=== PATIENT | male | born 1950 | race Caucasian/White ===

== ENCOUNTER 2017-09-03 19:54 | Emergency (ER) | payer BC, MEDICARE | END 2017-09-03 20:23 | disposition home or self-care (01) | LOC: ERS 19:54 | DX: G50.0 Trigeminal neuralgia (principal); M19.90 Unspecified osteoarthritis, unspecified site; E11.9 Type 2 diabetes mellitus without complications; I10 Essential (primary) hypertension; Z85.46 Personal history of malignant neoplasm of prostate; Z79.899 Other long term (current) drug therapy | CPT/HCPCS: 99283 ==

== ENCOUNTER 2017-09-22 10:09 | Outpatient (CLI) | payer BC, MEDICARE ==
[2017-09-22] MEDS ORDERED: Gadobenate Dimeglumine 529 MG/1 ML (20ML VIAL) ONE (16:43)
== END 2017-09-22 10:10 | disposition home or self-care (01) ==
LOC: BICMRI 10:09
PROVIDERS: ATTEND Psychiatry & Neurology Neurology
DX: G50.0 Trigeminal neuralgia (principal); G93.89 Other specified disorders of brain
CPT/HCPCS: 70553; A9579

== ENCOUNTER 2017-10-02 13:08 | Outpatient (CLI) | payer BC, MEDICARE | END 2017-10-02 13:09 | disposition home or self-care (01) | LOC: BICCT 13:08 | PROVIDERS: ATTEND Psychiatry & Neurology Neurology | DX: R93.8 Abnormal findings on diagnostic imaging of other specified body structures (principal); G93.89 Other specified disorders of brain | CPT/HCPCS: 70450 ==

== ENCOUNTER 2018-12-06 00:16 | Outpatient (CLI) | payer BC, MEDICARE ==
[2018-12-06 14:21] LABS: Bilirubin Negative (Negative); Blood, Urine Negative (Negative); Clarity CLEAR (Clear); Glucose, Urine (Dipstick) Negative (Negative); Leukocyte Negative (Negative); Nitrite Negative (Negative); Protein, Urine (Dipstick) Negative (Neg-Trace); Specific Gravity, Urine 1.009 (1.002-1.036)
[2018-12-06 14:24] LABS: Bacteria/HPF None Seen HPF (None Seen); Hyaline Casts/LPF 0-3 HYALINE CAST LPF (0-3 Hyaline); RBC/HPF 0-3 HPF (0-3); Squamous Epithelial None Seen HPF (0-3); WBC/HPF None Seen HPF (0-3)
== END 2018-12-06 00:17 | disposition home or self-care (01) ==
LOC: LABBT 00:16
PROVIDERS: ATTEND Orthopaedic Surgery
DX: Z01.812 Encounter for preprocedural laboratory examination (principal); M17.12 Unilateral primary osteoarthritis, left knee
CPT/HCPCS: 81001; 87081

== ENCOUNTER 2018-12-06 13:00 | Inpatient (IN) | payer BC, MEDICARE ==
--- NOTE | 2018-12-13 09:11 | HP ---
ANTICIPATED DATE OF SURGERY: 12/17/2018. HISTORY OF PRESENT ILLNESS: The patient is a 68-year-old male with a several year history of progressive problems with the left knee without injury. His symptoms become much worse over the past several months. He describes pain with ambulation and change in position. He has had progressive symptoms despite rest, restriction of activities, anti-inflammatory medications, cortisone injections and Synvisc injections. The pain is now interfering with day-to-day activities including walking, getting dressed, and sleeping. PAST MEDICAL HISTORY: The patient has history of hypertension, hyperlipidemia, irritable bowel syndrome, gout, prostate cancer, and kidney stones. CURRENT MEDICATIONS: Include rosuvastatin, losartan, chlorthalidone, Celebrex, allopurinol, Tylenol, and Metamucil. ALLERGIES: HE HAS NO KNOWN ALLERGIES. FAMILY HISTORY: Otherwise unremarkable. SOCIAL HISTORY: Otherwise unremarkable. REVIEW OF SYSTEMS: Otherwise unremarkable. PHYSICAL EXAMINATION: GENERAL: Shows a healthy heavyset male. HEENT: Unremarkable. NECK: Supple. CHEST: Clear. HEART: Regular rate and rhythm. ABDOMEN: Soft, nontender. RECTAL: Deferred. GENITAL: Deferred. EXTREMITIES: Pertinent findings related to left knee. There is moderate varus deformity. There is no definite effusion. There is tenderness and crepitus over the medial joint line. Range of motion is 5 to 115 degrees. There is no instability. NEUROVASCULAR: Intact. There is a left antalgic gait. Distal pulses are 1+. DIAGNOSTIC STUDIES: IMAGING STUDIES: X-rays of the left knee reveal [id number] collapse medially with progression from x-rays taken several years ago. IMPRESSION: 1. Progressive degenerative arthritis, left knee. 2. History of hypertension. 3. History of hyperlipidemia. 4. History of gout. PLAN: Left total knee replacement. The nature of the surgery, length of recovery, and potential complications such as infection, loss of motion, incomplete relief, delayed wound healing, neurovascular injury, thromboembolic phenomena, possible transfusion, and need for revision have been discussed in detail. Job ID: [id number]
[2018-12-17] MEDS ORDERED: Sodium Chloride 0.9% 100 ML ONE (06:23)
[2018-12-17] MEDS ORDERED: Tranexamic Acid 1,000 MG/10 ML VIAL ONE ×2 (06:23→09:09)
[2018-12-17] MEDS ORDERED: Midazolam HCl 2 mg/2 ml Vial ONE (06:26)
[2018-12-17] MEDS ORDERED: Fentanyl 100 MCG/2 ML VIAL ONE ×4 (06:26→10:52)
[2018-12-17] MEDS ORDERED: Lidocaine 1% (PF) 30 ML VIAL ONE (06:27)
[2018-12-17] MEDS ORDERED: Lidocaine 1% w/Epinephrine 1:100K 20 ML VIAL ONE (06:42)
[2018-12-17] MEDS ORDERED: Bupivacaine/Epinephrine 0.25% 30 ML VIAL ONE (06:42)
[2018-12-17] MEDS ORDERED: Fentanyl 250 MCG/5 ML VIAL ONE (07:14)
[2018-12-17] MEDS ORDERED: Ondansetron PF 4 MG/2 ML Vial IVP PRN ×2 (08:15→13:45)
[2018-12-17] MEDS ORDERED: Ropivacaine HCl/PF 250 ML in Premix Bag 1 BAG NERVE BLCK SCH (08:15)
[2018-12-17] MEDS ORDERED: HYDROcodone/Acetaminophen 10/325 mg Tablet PO PRN ×2 (08:15)
[2018-12-17] MEDS ORDERED: Promethazine HCl 25 MG/ML VIAL IM PRN (08:15)
[2018-12-17] MEDS ORDERED: traMADol HCl 50 MG TAB PO PRN ×3 (08:15→13:45)
[2018-12-17] MEDS ORDERED: Zolpidem Tartrate 5 MG TAB PO PRN ×2 (08:15→13:45)
[2018-12-17] MEDS ORDERED: Fentanyl 100 MCG/2 ML VIAL SLOW IVP PRN ×3 (08:18→13:45)
[2018-12-17] MEDS ORDERED: Tranexamic Acid 1,000 MG in Sodium Chloride 0.9% 100 ML IVPB SCH ×2 (09:15→13:45)
[2018-12-17] MEDS ORDERED: PHENYLEPHRINE-NS 100 MCG/ML 10 ML SYRINGE ONE (09:16)
--- NOTE | 2018-12-17 09:29 | RAD ---
Left knee 2 views INDICATION: Total knee postop film COMPARISON: None FINDINGS: There is a left total knee prosthesis that projects in the expected position. There is intr a-articular and periarticular soft tissue gas consistent with the patient's recent postoperative state. Surgical angela are seen within the medial soft tissues of the distal left thigh and proximal foreleg likely related to prior saphenous vein grafting. There are vascular calcification is within the posterior soft tissues. IMPRESSION: Postoperative left knee without radiographic evidence of complication.
[2018-12-17] MEDS ORDERED: Ketorolac Tromethamine 30 MG/ML VIAL ONE (10:05)
[2018-12-17] MEDS ORDERED: Ropivacaine 0.5% HCl/PF (150 MG/30 ML VIAL) ONE (12:04)
[2018-12-17] MEDS ORDERED: Ropivacaine 0.2% HCl/PF (40 MG/20 ML VIAL) ONE (12:04)
--- NOTE | 2018-12-17 12:04 | RAD ---
2 views left knee: 12/17/2018 COMPARISON: None HISTORY: Evaluate knee following arthroplasty FINDINGS: There is postoperative fluid and gas anterior to the left knee and in the left suprapatella r bursa, consistent with recent total knee arthroplasty. There is postoperative change involving the posterior aspect of the patella. No acute fracture or evidence of dislocation is noted. IMPRESSION: Findings consistent with recent left total knee arthroplasty.
[2018-12-17] MEDS ORDERED: Ondansetron PF 4 MG/2 ML Vial ONE (13:40)
[2018-12-17] MEDS ORDERED: PROPOFOL 200 MG/20 ML VIAL ONE (13:40)
[2018-12-17] MEDS ORDERED: Dexamethasone 20 MG/5 ML VIAL ONE (13:40)
[2018-12-17] MEDS ORDERED: Promethazine HCl 25 MG/ML VIAL SLOW IVP PRN (13:45)
[2018-12-17] MEDS ORDERED: AZILSARTAN MED PO SCH (13:45)
[2018-12-17] MEDS ORDERED: Acetaminophen 325 MG TAB PO PRN (13:45)
[2018-12-17] MEDS ORDERED: CHLORTHALIDONE PO SCH (13:45)
[2018-12-17] MEDS ORDERED: diphenhydrAMINE 25 MG CAP PO PRN (13:45)
[2018-12-17] MEDS ORDERED: Amlodipine 10 MG TAB PO SCH (14:45)
[2018-12-17] MEDS ORDERED: Aspirin 81 mg Enteric Coated Tablet PO SCH (14:45)
[2018-12-17] MEDS ORDERED: Allopurinol 300 MG TAB PO SCH (14:45)
[2018-12-17] MEDS ORDERED: Multivitamin W/ Minerals 1 TAB PO SCH (15:00)
[2018-12-17] MEDS ORDERED: Senokot S 8.6-50 MG TAB PO SCH (15:00)
[2018-12-17] MEDS ORDERED: Chlorthalidone 25 MG TAB PO SCH (15:00)
[2018-12-17] MEDS ORDERED: CeleCOXIB 100 MG CAP PO SCH (15:00)
[2018-12-17] MEDS ORDERED: Losartan 25 MG TAB PO SCH (15:00)
[2018-12-17] MEDS: CEFAZOLIN 2 GM in Premix Bag 1 BAG IVPB SCH ×2 (15:53→23:23)
[2018-12-17] MEDS: HYDROcodone/Acetaminophen 10/325 mg Tablet PO PRN ×2 (15:54→20:31)
[2018-12-17] MEDS ORDERED: Ketorolac Tromethamine 30 MG/ML VIAL IVP PRN (16:00)
--- NOTE | 2018-12-17 16:17 | PDOC.PN ---
- Subjective Encounter Start Date: 12/17/18 Encounter Start Time: 16:10 Subjective: Consult for gen med mgmt s/p L TKA. Hx of HTN, Gout, Prostate Ca, -: Renal lithiasis. States feeling good and minimal pain. No CP, SOB -: Reviewed all hx, labs, rads, EKG's. - Objective MAR Reviewed: Yes Vital Signs & Weight: Weight Weight 265 lb Additional Labs: Laboratory Tests 09/20/17 12/12/18 12/12/18 07:26 08:27 08:27 WBC 4.8 Hgb 14.1 Hct 44.1 Plt Count 172 Sodium 137 Potassium 3.7 Chloride 102 Carbon Dioxide 28 Anion Gap 11 BUN 17 Creatinine 1.27 Estimated GFR (MDRD) 56 Glucose 117 H Hemoglobin A1c 5.8 Calcium 9.7 EKG Reviewed by me: Yes (12/12/18 - NSR, no acute ST-T wave changes, nl axis) Phys Exam - Physical Examination Constitutional: NAD HEENT: PERRLA, sclera anicteric, oral pharynx no lesions Neck: no nodes, no JVD, supple, full ROM Respiratory: no wheezing, no rales, no rhonchi, clear to auscultation bilateral S1, S2 Cardiovascular: RRR, no significant murmur, no rub, gallop obese Gastrointestinal: soft, non-tender, no distention, positive bowel sounds L knee with surgical dressing, edema, nerve block in place Musculoskeletal: pulses present Neurological: moves all 4 limbs Psychiatric: A&O x 3 Skin: normal turgor, cap refill <2 seconds Dx/Plan (1) HTN (hypertension) Code(s): I10 - ESSENTIAL (PRIMARY) HYPERTENSION Status: Chronic Qualifiers: Hypertension type: essential hypertension Qualified Code(s): I10 - Essential (primary) hypertension Comment: Resume home BP regimen, PRN Hydralazine (2) CKD (chronic kidney disease), stage III Code(s): N18.3 - CHRONIC KIDNEY DISEASE, STAGE 3 (MODERATE) Status: Chronic Comment: Avoid nephrotoxic meds and limit contrast exposure (3) GERD (gastroesophageal reflux disease) Code(s): K21.9 - GASTRO-ESOPHAGEAL REFLUX DISEASE WITHOUT ESOPHAGITIS Status: Chronic Comment: Protonix 40mg daily (4) Osteoarthritis Code(s): M19.90 - UNSPECIFIED OSTEOARTHRITIS, UNSPECIFIED SITE Status: Chronic Comment: Pain control, PT for mobilization (5) Status post total knee replacement, left Code(s): Z96.652 - PRESENCE OF LEFT ARTIFICIAL KNEE JOINT Status: Acute Comment: s/p L TKA, pain control, ASA 81mg BID, Joint U protocol - Plan plan discussed w/ family, continue antibiotics, PT/OT, forensic social worker, incentive spirometry, out of bed/ambulate, DVT proph w/SCDs Stable currently -: Continue home BP regimen -: OOB with PT for mobilization -: Pain control as clinically indicated -: AM lab: CBC * Thank you for the consult, will continue to follow with primary service.
--- NOTE | 2018-12-17 16:18 | OP ---
DATE OF PROCEDURE: 12/17/2018 COMPUTER NETWORKING INSTRUCTOR ADJUNCT: Jacy Lopez PA-C. ANESTHESIA: General plus adductor canal and sciatic nerve blocks. PREOPERATIVE DIAGNOSIS: Degenerative arthritis, left knee. POSTOPERATIVE DIAGNOSIS: Degenerative arthritis, left knee. PROCEDURES PERFORMED: Left total knee replacement with computer-assisted navigation with cemented Ingalls triathlon components (#5 femoral component, #5 primary tibial base plate with 9 mm CS plastic insert, and A35 all plastic patellar component). DESCRIPTION OF PROCEDURE: After satisfactory anesthesia was induced in supine position, sequential compression device was placed on the nonoperative leg throughout the procedure. The left leg was then prepped and draped in routine sterile fashion. The leg was elevated and exsanguinated with an Esmarch bandage and the tourniquet inflated to 300 mmHg. A gently curved medial parapatellar incision was made, carried down through the subcutaneous tissues and bleeding points controlled with Bovie cautery. Medial parapatellar arthrotomy was performed. Patella dislocated laterally and portions of the fat pad were excised for exposure. There was marked tricompartmental degenerative arthritis of the knee, especially medially with large areas of exposed bone. Meniscal remnants and osteophytes were removed. Using the [employer] pinless navigation system and the appropriate guides, the distal femoral and proximal tibial articular surfaces were excised with an oscillating saw to accept the trial components. It was felt that #5 femoral component, #5 tibial base plate with 9 mm CS plastic insert gave appropriate size, fit, stability, and correction of the preoperative deformity. The patellar articular surface was excised to accept an all plastic A35 patellar component. There was good range of motion and good patellar tracking. The trial components were removed. The knee was copiously irrigated with pulsatile lavage, and the bony surfaces thoroughly cleaned and dried. The permanent components were then cemented in a single stage using one package of cement premixed with 1 g of tobramycin powder. Excess cement was removed. There was again good fit and stability of the components. The knee was copiously irrigated. The medial retinaculum and quadriceps mechanism were closed with interrupted #2 Vicryl and a running #2 Quill. Skin was infiltrated with 30 mL of 0.25% Marcaine with epinephrine. Subcutaneous tissues were closed with a running 0 Quill suture, and the skin closed with running subcuticular 3-0 Monoderm and SurgiSeal skin adhesive. A sterile bulky compressive dressing was applied. The tourniquet deflated after 71 minutes. The foot promptly pinked up, and sequential compression devices were applied to his operated leg. He was awakened, taken to recovery room in stable condition. There were no apparent intraoperative complications. Estimated blood loss was less than 100 mL. Job ID: [id number]
[2018-12-17] MEDS ORDERED: hydrALAZINE 20 MG/ML VIAL SLOW IVP PRN (16:25)
[2018-12-17 18:19] VITALS: BMI 38.0
[2018-12-17] MEDS: Ketorolac Tromethamine 30 MG/ML VIAL IVP SCH ×2 (19:25→22:00)
[2018-12-17] MEDS: Sodium Chloride 0.9% 1,000 ML IV SCH ×2 (19:30→19:31)
[2018-12-17] MEDS: Aspirin 81 mg Enteric Coated Tablet PO SCH (20:28)
[2018-12-17] MEDS: Rosuvastatin 20 MG TAB PO SCH (20:28)
[2018-12-17] MEDS: Senokot S 8.6-50 MG TAB PO SCH (20:30)
[2018-12-18] MEDS: Sodium Chloride 0.9% 1,000 ML IV SCH ×3 (03:31→20:58)
[2018-12-18] MEDS: Ketorolac Tromethamine 30 MG/ML VIAL IVP SCH ×4 (05:21→20:59)
[2018-12-18 05:59] LABS: Hemoglobin 11.3 g/dL (14.0-18.0); Mean Corpuscular HGB CONC 34.3 g/dL (32.0-36.0); Mean Corpuscular Hemoglobin 30.1 pg (27.0-31.0); Mean Corpuscular Volume 87.7 fL (78.0-98.0); Mean Platelet Volume 8.1 fL (7.4-10.4); Platelet Count 161 thou/uL (130-400); RBC Distribution Width 12.8 % (11.5-14.5); Red Blood Cell (RBC) Count 3.77 mill/uL (4.70-6.10); White Blood Cell (WBC) Count 8.3 thou/uL (4.8-10.8)
[2018-12-18] MEDS: Amlodipine 10 MG TAB PO SCH (08:06)
[2018-12-18] MEDS: Allopurinol 300 MG TAB PO SCH (08:06)
[2018-12-18] MEDS: CeleCOXIB 100 MG CAP PO SCH (08:07)
[2018-12-18] MEDS: Chlorthalidone 25 MG TAB PO SCH (08:09)
[2018-12-18] MEDS: Losartan 25 MG TAB PO SCH (08:10)
[2018-12-18] MEDS: Aspirin 81 mg Enteric Coated Tablet PO SCH ×2 (08:11→20:58)
[2018-12-18] MEDS: Senokot S 8.6-50 MG TAB PO SCH ×2 (08:14→20:59)
[2018-12-18] MEDS: Multivitamin W/ Minerals 1 TAB PO SCH (08:14)
--- NOTE | 2018-12-18 10:19 | PRG ---
DATE OF SERVICE: 12/18/2018 SUBJECTIVE: Josefa is a 68-year-old white male, who is postop day 1 from left total knee arthroplasty. He is comfortable and he has been ambulating well today. He has no complaints or pain at this point other than some suprapatellar pouch pain. OBJECTIVE: VITAL SIGNS: Stable. GENERAL: He is alert and oriented to person, place, time and situation, grossly nonfocal. EXTREMITIES: He is neurovascularly intact in the left lower extremity. There is no strikethrough or erythema noted. IMPRESSION: This is a 68-year-old male postop day 1 left total knee arthroplasty, doing well. PLAN: Continue current care. Probable discharge home tomorrow. Job ID: [id number]
[2018-12-18] MEDS: HYDROcodone/Acetaminophen 10/325 mg Tablet PO PRN ×2 (10:32→14:45)
[2018-12-18] MEDS: Rosuvastatin 20 MG TAB PO SCH (20:59)
--- NOTE | 2018-12-18 21:59 | PDOC.PN ---
- Subjective Encounter Start Date: 12/18/18 Encounter Start Time: 12:30 Patient seen and examined for med mngt. Pain controlled. No CP/SOB/fever. No new complaints. No overnight events - Objective MAR Reviewed: Yes Vital Signs & Weight: Vital Signs (12 hours) Temp Pulse Resp BP Pulse Ox 12/18/18 20:40 97.9 F 81 20 112/55 L 94 L 12/18/18 15:38 97.5 F L 90 20 129/75 95 Weight Admit Weight 265 lb Weight 265 lb I&O: 12/17/18 12/18/18 12/19/18 06:59 06:59 06:59 Intake Total 1950 1340 Balance 1950 1340 Result Diagrams: 12/18/18 04:57 EKG Reviewed by me: Yes (SR) Phys Exam - Physical Examination Constitutional: NAD Respiratory: no wheezing, no rhonchi Cardiovascular: RRR, no rub Gastrointestinal: soft, non-tender, positive bowel sounds Musculoskeletal: no edema Neurological: moves all 4 limbs Dx/Plan - Plan plan discussed w/ family, DVT proph w/SCDs IMPRESSION: HTN HLD CKD 3 Obesity BMI 38 h/o Vit D def DJD GERD PLAN: Cont Amlodipine Cont Losartan/Chlorthalidone Cont PPI Add Calcium with Vit D Cont other meds as below Cont IS/SCDs Laboratory Tests 09/20/17 12/12/18 07:26 08:27 Creatinine 1.27 25-OH Vitamin D Total 27.2 L Review of Systems - Review of Systems Respiratory: negative: Cough, Dry, Shortness of Breath, Hemoptysis, SOB with Excertion, Pleuritic Pain, Sputum, Wheezing Cardiovascular: negative: chest pain, palpitations, orthopnea, paroxysmal nocturnal dyspnea, edema, light headedness, other - Medications/Allergies Allergies/Adverse Reactions: Allergies Allergy/AdvReac Type Severity Reaction Status Date / Time No Known Allergies Allergy Verified 12/06/18 12:59 Medications: Current Medications Acetaminophen (Tylenol) 650 mg PO Q4H PRN PRN Reason: Headache/Fever or Pain Hydrocodone Bitart/Acetaminophen ([place] 10/325) 1 tab PO Q4H PRN PRN Reason: Moderate Pain (4-6) Last Admin: 12/18/18 14:45 Dose: 1 tab Hydrocodone Bitart/Acetaminophen ([place] 10/325) 2 tab PO Q4H PRN PRN Reason: Severe Pain (7-10) Last Admin: 12/18/18 10:32 Dose: 2 tab Allopurinol (Zyloprim) 300 mg PO DAILY [facility] Last Admin: 12/18/18 08:06 Dose: Not Given Amlodipine Besylate (Norvasc) 10 mg PO DAILY [facility] Last Admin: 12/18/18 08:06 Dose: Not Given Aspirin (Ecotrin) 81 mg PO BID [facility] Last Admin: 12/18/18 20:58 Dose: 81 mg Celecoxib (Celebrex) 200 mg PO DAILY [facility] Last Admin: 12/18/18 08:07 Dose: Not Given Chlorthalidone (Hygroton) 12.5 mg PO QAM [facility] Last Admin: 12/18/18 08:09 Dose: Not Given Diphenhydramine HCl (Benadryl) 25 mg PO Q6H PRN PRN Reason: Itching Fentanyl (Sublimaze) 50 mcg SLOW IVP Q30MIN PRN PRN Reason: Moderate Pain (4-6) Last Admin: 12/18/18 16:21 Dose: 50 mcg Fentanyl (Sublimaze) 100 mcg SLOW IVP Q1H PRN PRN Reason: Severe Pain (7-10) Hydralazine HCl (Apresoline) 10 mg SLOW IVP Q4H PRN PRN Reason: SBP Greater Than 180 Ropivacaine 250 ml/ Device 250 mls @ 10 mls/hr NERVE BLCK INF [facility] Last Admin: 12/18/18 13:24 Dose: 250 mls Sodium Chloride (Normal Saline 0.9%) 1,000 mls @ 100 mls/hr IV .Q10H [facility] Last Admin: 12/18/18 20:58 Dose: Not Given Iron/Minerals/Multivitamins (Theragran M) 1 tab PO DAILY [facility] Last Admin: 12/18/18 08:14 Dose: 1 tab Ketorolac Tromethamine (Toradol) 15 mg IVP Q6H [facility] Stop: 12/19/18 16:01 Last Admin: 12/18/18 20:59 Dose: 15 mg Losartan Potassium (Cozaar) 100 mg PO DAILY [facility] Last Admin: 12/18/18 08:10 Dose: Not Given Ondansetron HCl (Zofran) 4 mg IVP Q6H PRN PRN Reason: Nausea/Vomiting Pantoprazole Sodium (Protonix) 40 mg PO DAILY [facility] Last Admin: 12/18/18 08:13 Dose: Not Given Promethazine HCl (Phenergan) 12.5 mg IM Q4H PRN PRN Reason: Nausea Promethazine HCl (Phenergan) 12.5 mg SLOW IVP Q4H PRN PRN Reason: Nausea/Vomiting Rosuvastatin Calcium (Crestor) 40 mg PO HS [facility] Last Admin: 12/18/18 20:59 Dose: 40 mg Senna/Docusate Sodium (Senokot S) 2 tab PO BID [facility] Last Admin: 12/18/18 20:59 Dose: 2 tab Sodium Chloride (Flush - Normal Saline) 10 ml IVF PRN PRN PRN Reason: Saline Flush Last Admin: 12/18/18 10:37 Dose: 10 ml Tramadol HCl (Ultram) 50 mg PO Q6H PRN PRN Reason: Mild Pain (1-3) Tramadol HCl (Ultram) 100 mg PO Q6H PRN PRN Reason: Moderate Pain (4-6) Last Admin: 12/18/18 13:15 Dose: 100 mg Zolpidem Tartrate (Ambien) 5 mg PO HSPRN PRN PRN Reason: Insomnia
[2018-12-19] MEDS: Ketorolac Tromethamine 30 MG/ML VIAL IVP SCH ×2 (03:45→09:07)
[2018-12-19] MEDS: Sodium Chloride 0.9% 1,000 ML IV SCH ×2 (05:24→08:25)
[2018-12-19] MEDS: CeleCOXIB 100 MG CAP PO SCH (07:43)
[2018-12-19] MEDS: Losartan 25 MG TAB PO SCH (07:45)
[2018-12-19] MEDS: Chlorthalidone 25 MG TAB PO SCH (07:45)
[2018-12-19] MEDS ORDERED: Calcium Carbonate + Vit D 1 TAB PO SCH (08:00)
[2018-12-19] MEDS: HYDROcodone/Acetaminophen 10/325 mg Tablet PO PRN ×2 (08:20→13:29)
[2018-12-19] MEDS: Amlodipine 10 MG TAB PO SCH (08:23)
[2018-12-19] MEDS: Aspirin 81 mg Enteric Coated Tablet PO SCH (08:23)
[2018-12-19] MEDS: Allopurinol 300 MG TAB PO SCH (08:23)
[2018-12-19] MEDS: Senokot S 8.6-50 MG TAB PO SCH (08:23)
[2018-12-19] MEDS: Multivitamin W/ Minerals 1 TAB PO SCH (08:24)
[2018-12-19 12:23] VITALS: BP 137/69; TEMP 98.1
== END 2018-12-19 13:56 | disposition home or self-care (01) | DRG 470 ==
LOC: SJJU 12-17 05:35
PROVIDERS: ADMIT Orthopaedic Surgery; ATTEND Orthopaedic Surgery
PROC: 0SRD0J9 Replacement of Left Knee Joint with Synthetic Substitute, Cemented, Open Approach (ICD-10-PCS; principal; 2018-12-17)
PROC: 8E0YXBZ Computer Assisted Procedure of Lower Extremity (ICD-10-PCS; 2018-12-17)
DX: M17.12 Unilateral primary osteoarthritis, left knee (principal); E78.5 Hyperlipidemia, unspecified; M10.9 Gout, unspecified; N18.3 Chronic kidney disease, stage 3 (moderate); K21.9 Gastro-esophageal reflux disease without esophagitis; I12.9 Hypertensive chronic kidney disease with stage 1 through stage 4 chronic kidney disease, or unspecified chronic kidney disease; E66.9 Obesity, unspecified; Z85.46 Personal history of malignant neoplasm of prostate; Z79.899 Other long term (current) drug therapy; Z68.38 Body mass index [BMI] 38.0-38.9, adult
CPT/HCPCS: 36415; 85027; C1713; C1776; J0690; J1100; J1885; J2001; J2250; J2405; J2704; J2795; J3010; J3370; J3490; J7050

== ENCOUNTER 2018-12-12 07:52 | Outpatient (CLI) | payer BC, MEDICARE ==
[2018-12-12 09:00] LABS: #Eosinphils 0.2 thou/uL (0.0-0.7); #Lymphocytes 1.5 thou/uL (1.20-3.40); #Monocytes 0.5 thou/uL (0.11-0.59); #Neutrophils 2.5 thou/uL (1.40-6.50); %Basophils 0.9 % (0.0-1.0); %Eosinophils 4.3 % (0.0-10.0); %Lymphocytes 31.9 % (21.0-51.0); %Monocytes 10.5 % (0.0-10.0); %Neutrophils 52.4 % (42.0-75.0); Hemoglobin 14.1 g/dL (14.0-18.0); Mean Corpuscular Volume 87.5 fL (78.0-98.0); Mean Platelet Volume 7.9 fL (7.4-10.4); Platelet Count 172 thou/uL (130-400); Red Blood Cell (RBC) Count 5.04 mill/uL (4.70-6.10); White Blood Cell (WBC) Count 4.8 thou/uL (4.8-10.8)
[2018-12-12 09:06] LABS: INR-International Normal Ratio 1.1
[2018-12-12 09:24] LABS: Anion Gap 11 mmol/L (10-20); BUN (Urea Nitrogen) 17 mg/dL (8.4-25.7); Calc. Creatinine Clearance 0 mL/min (70-130); Calcium 9.7 mg/dL (7.8-10.44); Carbon Dioxide 28 mmol/L (23-31); Chloride 102 mmol/L (98-107); Estimated GFR-MDRD 56; Glucose 117 mg/dL (80-115); Potassium 3.7 mmol/L (3.5-5.1); Sodium 137 mmol/L (136-145)
== END 2018-12-12 07:53 | disposition home or self-care (01) ==
LOC: LABBT 07:52
PROVIDERS: ATTEND Orthopaedic Surgery
DX: Z01.818 Encounter for other preprocedural examination (principal); M17.12 Unilateral primary osteoarthritis, left knee
CPT/HCPCS: 80048; 85025; 85610; 86850; 86900; 86901; 93005; 93010

== ENCOUNTER 2019-06-02 05:43 | Inpatient (IN) | payer BC, MEDICARE ==
[2019-06-02 06:34] LABS: #Lymphocytes 0.6 thou/uL (1.20-3.40); #Monocytes 0.7 thou/uL (0.11-0.59); #Neutrophils 5.3 thou/uL (1.40-6.50); %Basophils 0.2 % (0.0-1.0); %Eosinophils 0.1 % (0.0-10.0); %Lymphocytes 9.6 % (21.0-51.0); %Neutrophils 80.2 % (42.0-75.0); Hemoglobin 14.4 g/dL (14.0-18.0); Mean Corpuscular HGB CONC 34.2 g/dL (32.0-36.0); Mean Corpuscular Hemoglobin 29.3 pg (27.0-31.0); Mean Corpuscular Volume 85.4 fL (78.0-98.0); Platelet Count 172 thou/uL (130-400); RBC Distribution Width 12.9 % (11.5-14.5); Red Blood Cell (RBC) Count 4.92 mill/uL (4.70-6.10); White Blood Cell (WBC) Count 6.6 thou/uL (4.8-10.8)
[2019-06-02] MEDS ORDERED: Ondansetron ODT 4 MG TAB ONE (06:47)
[2019-06-02 06:56] LABS: ALT (SGPT) 18 U/L (8-55); AST (SGOT) 20 U/L (5-34); Albumin 3.9 g/dL (3.4-4.8); Alkaline Phosphatase 59 U/L (40-110); Anion Gap 13 mmol/L (10-20); BUN (Urea Nitrogen) 18 mg/dL (8.4-25.7); Bilirubin, Total 1.2 mg/dL (0.2-1.2); Calc. Creatinine Clearance 0 mL/min (70-130); Carbon Dioxide 23 mmol/L (23-31); Chloride 100 mmol/L (98-107); Estimated GFR-MDRD 74; Globulin 2.9 g/dL (2.4-3.5); Glucose 141 mg/dL (80-115); Potassium 3.4 mmol/L (3.5-5.1); Protein, Total 6.8 g/dL (5.8-8.1); Sodium 133 mmol/L (136-145)
[2019-06-02 08:12] LABS: CK (CPK) 109 U/L (30-200); Lipase 20 U/L (8-78)
--- NOTE | 2019-06-02 08:12 | CT ---
CT ABDOMEN WITH CONTRAST CT PELVIS WITH CONTRAST: DATE: 06/02/2019 HISTORY: 69-year-old male with abdominal bloating, distention, nausea, vomiting, diarrhea, and indigestion. COMPARISON: None available TECHNIQUE: IV injection of iodinated contrast media: administered. Oral contrast media:Not administered FINDINGS: Distention of stomach and jejunum with air-fluid levels. Collapse of ileal loops. Small amount of free fluid in the pelvic cavity mostly at pelvic inlet. No pneumoperitoneum or pleural effusion. Transition zone in small bowel caliber in left lateral peritoneal cavity over somewhat long-distance, not abrupt. No abdominal aortic aneurysm. Small amount of free fluid around spleen and smaller amount of free fluid around the liver. No major pathology identified involving liver, spleen, pancreas, kidneys, adrenals, appendix, or blad yisel. Absent prostate gland. Surgical clips in prostate bed and along iliac chains. No colonic diverticulitis. No colonic distention. IMPRESSION: 1) possible partial or low-grade small bowel obstruction. Consider therapeutic Gastrografin small bow el series. 2) small volume of ascites. 3) status post prostatectomy and iliac chain lymph node dissection.
[2019-06-02] MEDS ORDERED: Benzocaine 20% Spray 60 ML CAN ONE (08:31)
--- NOTE | 2019-06-02 09:50 | RAD ---
RADIOGRAPH CHEST 1 VIEW: DATE: 06/02/2019 HISTORY: 69-year-old male status post NG tube placement. FINDINGS: The image is overexposed. There is no gross evidence of pulmonary edema or consolidation. No cardiome armando. No NG tube is visible. The stomach is distended with large volume of gas. Lungs are hypoinflated. Elevated left hemidiaphragm. The lateral costophrenic angles are not effaced. IMPRESSION: 1) Limited study. 2) no acute findings. 3) gaseous gastric distention. 4) no NG tube visualized.
--- NOTE | 2019-06-02 10:39 | RAD ---
Radiograph abdomen one view: DATE: 06/02/2019 Time: 10:03 AM HISTORY: 69-year-old male status post NG tube placement. COMPARISON: 06/02/2019 at 9:09 AM. FINDINGS: There is a new esophagogastric tube with distal tip and side-port in the proximal portion of the stom ach. There has been interval improvement in the gaseous distention of the stomach. There continues to be moderate volume of intraluminal gastric gas. Cluster of eggshell calcifications again overlies gastric bubble. Air-filled dilated small bowel loops remain. IMPRESSION: Interval placement of esophagogastric tube a short distance into the proximal stomach.
[2019-06-02] MEDS ORDERED: Ondansetron ODT 4 MG TAB SL PRN (10:47)
[2019-06-02] MEDS ORDERED: Ondansetron PF 4 MG/2 ML Vial IVP PRN ×2 (10:47→15:37)
[2019-06-02] MEDS ORDERED: Morphine 4 MG/ML VIAL SLOW IVP PRN (10:48)
--- NOTE | 2019-06-02 10:49 | RAD ---
SUPINE ABDOMEN: HISTORY: Bloating and diarrhea. FINDINGS/IMPRESSION: There is gaseous distention of the stomach. There are gas-filled dilated loops of small bowel worris ome for small bowel obstruction. POS: [facility]
[2019-06-02] MEDS ORDERED: D5 1/2 NS w/20 mEq KCL 1,000 ML IV SCH (11:00)
[2019-06-02 11:01] VITALS: BMI 38.4
[2019-06-02] MEDS: D5 1/2 NS w/20 mEq KCL 1,000 ML IV SCH ×2 (11:31→18:40)
[2019-06-02 11:46] LABS: Lactic Acid 1.2 mmol/L (0.5-2.2)
[2019-06-02] MEDS ORDERED: hydrALAZINE 20 MG/ML VIAL SLOW IVP PRN (12:07)
--- NOTE | 2019-06-02 13:23 | CON ---
DATE OF CONSULTATION: CHIEF COMPLAINT: Nausea and vomiting. HISTORY OF PRESENT ILLNESS: This is a 69-year-old male who says that he has had a 2-day history of nausea, vomiting, and some vague abdominal pain. He had a bowel movement yesterday. He says he passed flatus about an hour ago. He had an open prostatectomy several years ago, but otherwise no abdominal surgeries. He had a colonoscopy and EGD [address] Wong. PAST MEDICAL HISTORY: Irritable bowel, obesity, gout, hypertension, and gastroesophageal reflux. PAST SURGICAL HISTORY: Open prostatectomy, knee replacement. MEDICATIONS: 1. Amlodipine. 2. Allopurinol. 3. Pravastatin. 4. Olmesartan. 5. Nexium. 6. Citrucel. 7. Trulance. ALLERGIES: HE HAS NO KNOWN DRUG ALLERGIES. FAMILY HISTORY: Diabetes. SOCIAL HISTORY: He is . No tobacco or alcohol. PHYSICAL EXAMINATION: GENERAL: A well-developed, well-nourished male, in no apparent distress. NG is in place. He is an obese male, lying still, watching television, fairly dark bile coming out of his NG tube. He has had about 250 mL out so far, but it is still draining pretty regular. VITAL SIGNS: Temperature 98.2, pulse 98, and blood pressure 136/82. ABDOMEN: Distended. Rare bowel sounds. EXTREMITIES: Unremarkable. LABORATORY DATA: His white count is 6.6, H and H of 14 and 42, and platelet count 172. Electrolytes; glucose elevated at 141, sodium 133, potassium 3.4. IMAGING DATA: He had a CT scan showing dilated stomach and proximal jejunum with some air-fluid levels. There is what appears to be a possible transition zone on the left lower abdomen. ASSESSMENT: Partial small bowel obstruction. PLAN: NG suction. IV hydration. Job ID: [id number]
[2019-06-02] MEDS ORDERED: Acetaminophen 650 MG Suppository PR PRN (15:37)
--- NOTE | 2019-06-02 16:12 | HP ---
PRIMARY CARE PROVIDER: Dr. Tio Ibanez. CHIEF COMPLAINT: Vomiting. HISTORY OF PRESENT ILLNESS: Mr. Irvin is a pleasant 69-year-old gentleman, who was seen at [facility] on June 02, 2019. He reports that over the last 2 days, he had vomiting, bloated sensation in his abdomen, diarrhea, and indigestion. He denies having any abdominal pain. He reports that he has been having worsening abdominal distention. He reports passing flatus. His last bowel movement was yesterday. He last vomited today morning. He came to the emergency room because of ongoing nausea and abdominal distention. He denies any fevers or chills. He denies any chest pain or shortness of breath. REVIEW OF SYSTEMS: All systems were reviewed and found to be negative except for the pertinent positives mentioned above. PAST MEDICAL HISTORY: Irritable bowel syndrome, hypertension, gout, gastroesophageal reflux disease, dyslipidemia, and prostate cancer. PAST SURGICAL HISTORY: Left total knee replacement, prostatectomy, and colonoscopy. FAMILY HISTORY: Congestive heart failure in his father and diabetes mellitus in his mother. SOCIAL HISTORY: The patient denies tobacco use, alcohol use, or recreational drug use. ALLERGIES: NO KNOWN DRUG ALLERGIES. CURRENT MEDICATIONS: Acetaminophen 1000 mg every 6 hours as needed, allopurinol 300 mg daily, amlodipine 10 mg daily, Citrucel 500 mg daily as needed, Nexium 20 mg daily, Benicar 40 mg daily, Trulance 3 mg daily as needed, and rosuvastatin 40 mg daily. CODE STATUS: I discussed his code status. He is full code. PHYSICAL EXAMINATION: GENERAL: On examination, Mr. Irvin is awake and alert, not in acute distress. VITAL SIGNS: Blood pressure is 136/82, pulse rate 98, respiratory rate 20, and oxygen saturation 97% on room air. He is afebrile. EYES: No scleral icterus. No conjunctival pallor. ENT: Moist mucosal membranes. No oropharyngeal erythema or exudates. NECK: Supple, nontender, and trachea is midline. RESPIRATORY: Accessory muscles of breathing are not active. Chest wall movements are symmetric bilaterally. LUNGS: Clear to auscultation without wheeze, rhonchi, or crepitations. CARDIOVASCULAR: S1 and S2 are heard, regular. Peripheral pulses are palpable. ABDOMEN: Distended, nontender, and sluggish bowel sounds. NEUROLOGIC: Cranial nerves II through XII are intact. MUSCULOSKELETAL: Power is 5/5 in all 4 extremities. SKIN: No rashes or subcutaneous nodules. LYMPHATIC: No cervical lymphadenopathy. PSYCHIATRIC: Normal mood, normal affect, the patient is oriented to person, place, and time. LABORATORY DATA: Mr. Irvin's labs and investigations were reviewed. I reviewed his electrocardiogram, which shows normal sinus rhythm, no ST changes to suggest an acute coronary syndrome. I also reviewed his chest x-ray, which does not show any pulmonary infiltrates. CT scan of the abdomen and pelvis with contrast showed possible partial or low-grade small-bowel obstruction, small volume ascites. Labs show normal white count, normal hemoglobin, normal platelet count, decreased sodium of 133, decreased potassium of 3.4, normal creatinine, normal LFTs, normal lipase, normal BNP, normal CK and normal troponin I. lactic acid level is normal. ASSESSMENT AND PLAN: Mr. Irvin is a pleasant 69-year-old gentleman, who was seen at [facility] on June 02, 2019. His problem list includes: 1. Bowel obstruction: Mr. Irvin is presenting with bowel obstruction. He currently has NG tube to suction. I will admit him to the hospital and continue the same. General Surgery Service being consulted for opinion and help with management. 2. Hypertension: The patient is currently n.p.o. We will add p.r.n. hydralazine for blood pressure spikes. 3. Dyslipidemia: We will resume statin when the patient is able to take oral medications. 4. Hypokalemia: Replace potassium, recheck. 5. Hyponatremia: Mild, likely asymptomatic. 6. History of gout: Start allopurinol when the patient is able to take oral medications. Many thanks for allowing me to participate in your patient's care. Please feel free to contact me with any questions or concerns. LEVEL OF RISK: High. LEVEL OF COMPLEXITY: High. Job ID: [id number]
[2019-06-02] MEDS ORDERED: Lorazepam 2 MG/ML VIAL SLOW IVP PRN (16:25)
[2019-06-03] MEDS: D5 1/2 NS w/20 mEq KCL 1,000 ML IV SCH ×3 (02:43→18:25)
[2019-06-03 05:57] LABS: Anion Gap 10 mmol/L (10-20); BUN (Urea Nitrogen) 16 mg/dL (8.4-25.7); Calc. Creatinine Clearance 138 mL/min (70-130); Calcium 8.5 mg/dL (7.8-10.44); Carbon Dioxide 25 mmol/L (23-31); Chloride 100 mmol/L (98-107); Estimated GFR-MDRD 87; Glucose 130 mg/dL (80-115); Potassium 3.4 mmol/L (3.5-5.1); Sodium 132 mmol/L (136-145)
[2019-06-03 06:00] LABS: Band 1 % (5-11); Hemoglobin 13.5 g/dL (14.0-18.0); Lymphocytes 20 % (21-51); MDiff Complete? YES; Mean Corpuscular HGB CONC 34.8 g/dL (32.0-36.0); Mean Corpuscular Hemoglobin 29.6 pg (27.0-31.0); Mean Corpuscular Volume 85.3 fL (78.0-98.0); Mean Platelet Volume 7.7 fL (7.4-10.4); Monocytes 9 % (0-10); Neutrophil 70 % (42-75); Platelet Count 164 thou/uL (130-400); Platelet Morphology Comment Appears Adequate; RBC Distribution Width 12.8 % (11.5-14.5); RBC Morphology Normal; Red Blood Cell (RBC) Count 4.55 mill/uL (4.70-6.10); White Blood Cell (WBC) Count 5.2 thou/uL (4.8-10.8)
[2019-06-03] MEDS ORDERED: FLU VACC TS2019-20(65YR UP)/PF 180 MCG/0.5 ML SYRINGE IM ONE (09:00)
--- NOTE | 2019-06-03 12:04 | PRG ---
DATE OF SERVICE: 06/03/2019 SUBJECTIVE: The patient says he feels better. They have sucked a lot of fluid out of his gut. He is passing some flatus, however. OBJECTIVE: VITAL SIGNS: On examination, his temperature is 98.3, pulse 91, blood pressure 143/84. GENERAL: He looks good. He is in no apparent distress. He has had 850 out his NG tube. He has 1200 urine. ABDOMEN: Still little distended. He is morbidly obese. No tenderness. LABORATORY DATA: White count 5.2, H and H are 13 and 38, platelet count 164. Electrolytes; glucose elevated at 130, potassium 3.4, sodium 132. ASSESSMENT: Partial small-bowel obstruction. PLAN: Small bowel follow-through. Job ID: [id number]
--- NOTE | 2019-06-03 16:06 | RAD ---
GASTROGRAFIN SMALL BOWEL EXAM: INDICATIONS: Small bowel obstruction TECHNIQUE: Gastrografin given via NG tube. FINDINGS: The rent and housing investigator film shows gas-filled dilated loops of small bowel, consistent with small bowel obstruction . There is scattered stool in the colo. Initial imaging out to one hour shows opacification of the pr oximal jejunum with dilated loops of jejunum and fold thickening. A two hour film shows opacification of the mid jejunum loops with slow transit. Three hour film shows opacification of the distal ileal loops which are normal caliber. Contrast is seen in the right colon at three hours. IMPRESSION: Dilated proximal and mid small bowel with decompressed distal ileal loops. Findings indicate moderate grade mid small bowel obstruction. POS: [facility]
--- NOTE | 2019-06-03 18:50 | PDOC.HOSPP ---
- Subjective Encounter Date: 06/03/19 Encounter Time: 10:40 Subjective: Pt seen for followup re: bowel obstruction. passing flatus. No bowel movement at this time. - Objective Vital Signs & Weight: Vital Signs (12 hours) Temp Pulse Resp BP Pulse Ox 06/03/19 07:39 98.3 F 91 18 143/84 H 93 L Weight Weight 268 lb I&O: 06/02/19 06/03/19 06/04/19 06:59 06:59 06:59 Intake Total 772 1000 Output Total 2050 400 Balance -1278 600 Result Diagrams: 06/03/19 05:21 06/03/19 05:21 Additional Labs: Labs and MARs reviewed by ct Hospitalist ROS - Review of Systems Gastrointestinal: reports: constipation. denies: nausea, vomiting, abdominal pain, diarrhea, melena, hematochezia Genitourinary: denies: dysuria, frequency, incontinence, hematuria, retention - Medication Medications: Active Medications Generic Name Dose Route Start Last Admin Trade Name Freq PRN Reason Stop Dose Admin Potassium Chloride/Dextrose/Sod Cl 1,000 mls @ 125 mls/hr 06/02/19 11:15 18:25 D5 1/2 Ns W/20 Meq Kcl IV 1,000 mls .Q8H RASHEL Administration Lorazepam 0.25 mg 06/02/19 16:25 06/02/19 20:51 Ativan SLOW IVP 0.25 mg Q8H PRN Administration Anxiety/Agitation Ondansetron HCl 4 mg 06/02/19 15:37 06/02/19 17:52 Zofran IVP 4 mg Q6H PRN Administration Nausea/Vomiting Sodium Chloride 10 ml 06/02/19 21:00 06/03/19 11:40 Flush - Normal Saline IVF Not Given Q12HR RASHEL - Exam General - other findings: Obese Eye: anicteric sclera ENT: moist mucosa Neck: supple, symmetric Heart: RRR, no rubs Respiratory: CTAB Gastrointestinal: soft, non-tender, distended, diminished bowl sounds Extremities: no clubbing Musculoskeletal: normal strength Psychiatric: normal affect, normal behavior Hosp A/P (1) SBO (small bowel obstruction) Code(s): K56.609 - UNSP INTESTNL OBST, UNSP TO PARTIAL VERSUS COMPLETE OBST Status: Acute (2) CKD (chronic kidney disease), stage III Code(s): N18.3 - CHRONIC KIDNEY DISEASE, STAGE 3 (MODERATE) Status: Chronic (3) GERD (gastroesophageal reflux disease) Code(s): K21.9 - GASTRO-ESOPHAGEAL REFLUX DISEASE WITHOUT ESOPHAGITIS Status: Chronic (4) HTN (hypertension) Code(s): I10 - ESSENTIAL (PRIMARY) HYPERTENSION Status: Chronic Qualifiers: (5) Osteoarthritis Code(s): M19.90 - UNSPECIFIED OSTEOARTHRITIS, UNSPECIFIED SITE Status: Chronic - Plan Blood pressure reasonably controlled. Arthritis stable. Hyponatremia mild, likely asymptomatic. Potassium being replaced in IV fluids.
[2019-06-04] MEDS: D5 1/2 NS w/20 mEq KCL 1,000 ML IV SCH (03:48)
[2019-06-04 06:06] LABS: #Eosinphils 0.1 thou/uL (0.0-0.7); #Lymphocytes 1.2 thou/uL (1.20-3.40); #Monocytes 0.7 thou/uL (0.11-0.59); #Neutrophils 4.4 thou/uL (1.40-6.50); %Basophils 0.5 % (0.0-1.0); %Eosinophils 1.4 % (0.0-10.0); %Lymphocytes 18.4 % (21.0-51.0); %Monocytes 11.1 % (0.0-10.0); %Neutrophils 68.6 % (42.0-75.0); Hemoglobin 12.9 g/dL (14.0-18.0); Mean Corpuscular HGB CONC 34.1 g/dL (32.0-36.0); Mean Corpuscular Hemoglobin 29.3 pg (27.0-31.0); Mean Corpuscular Volume 85.9 fL (78.0-98.0); Mean Platelet Volume 7.8 fL (7.4-10.4); Platelet Count 152 thou/uL (130-400); RBC Distribution Width 12.7 % (11.5-14.5); Red Blood Cell (RBC) Count 4.41 mill/uL (4.70-6.10); White Blood Cell (WBC) Count 6.3 thou/uL (4.8-10.8)
[2019-06-04 06:22] LABS: Anion Gap 10 mmol/L (10-20); BUN (Urea Nitrogen) 14 mg/dL (8.4-25.7); Calc. Creatinine Clearance 141 mL/min (70-130); Calcium 8.7 mg/dL (7.8-10.44); Carbon Dioxide 27 mmol/L (23-31); Chloride 103 mmol/L (98-107); Estimated GFR-MDRD 89; Glucose 106 mg/dL (80-115); Potassium 3.1 mmol/L (3.5-5.1); Sodium 137 mmol/L (136-145)
[2019-06-04 08:04] VITALS: BP 149/84
--- NOTE | 2019-06-04 09:52 | PRG ---
DATE OF SERVICE: 06/04/2019 SUBJECTIVE: The patient feels much better. No further nausea or vomiting. He is having multiple bowel movements. He is tolerating clear liquids well. PHYSICAL EXAMINATION: VITAL SIGNS: His temperature is 98, pulse 80, blood pressure 149/84. GENERAL: He looks comfortable. He has just finished his clear liquid diet. ABDOMEN: Soft, nondistended, nontender. LABORATORY DATA: His white count is 6.3, H and H of 12 and 37, platelet count is 152. Potassium is a little low at 3.1, otherwise normal. Small bowel follow through was done yesterday that showed some dilated proximal and mid small bowel decompressed, but then he got full relief. ASSESSMENT: Partial small bowel obstruction, resolved. PLAN: I advised him to kind of stay on a low residue diet for some time and to return if this recurs. Job ID: [id number]
[2019-06-04] MEDS ORDERED: Potassium Chloride 20 MEQ TAB PO SCH (11:45)
[2019-06-04 12:57] VITALS: TEMP 98
--- NOTE | 2019-06-04 22:37 | DIS ---
DATE OF ADMISSION: 06/02/2019 DATE OF DISCHARGE: 06/04/2019 PRIMARY CARE PROVIDER: Tio Ibanez MD DISCHARGE DIAGNOSES: 1. Small-bowel obstruction. 2. Hypokalemia. 3. Hyponatremia. CONDITION OF PATIENT ON THE DAY OF DISCHARGE: Stable. I assessed Mr. Irvin on the day of discharge. He denies any chest pain or shortness of breath. Vital signs are stable. S1 and S2 are heard, regular. Lungs are clear to auscultation bilaterally. Post discharge followup: With primary care provider in 3 to 5 days. DISCHARGE MEDICATIONS: No change was made to his pre-admission home medications as dictated in my history and physical note dated June 02, 2019. CONSULTATIONS DURING THIS HOSPITALIZATION: General Surgery, Dr. Spivey. HOSPITAL COURSE: Mr. Irvin is a pleasant 69-year-old gentleman, who was admitted to [facility] for partial small-bowel obstruction on June 02, 2019. He was seen by General Surgery Service. He was managed conservatively. He had small bowel x-ray study on June 03, 2019, which showed dilated proximal and mid small bowel with decompressed distal ileal loops. Following the study, he had multiple bowel movements. He has been cleared for discharge by General Surgery Service. He has been advised to follow up with his primary care provider. On the day of discharge, he has sodium 137, potassium 3.1, which is being replaced, creatinine 0.85, white count 6300, hemoglobin 12.9, and platelet count 152,000. Many thanks for allowing me to participate in your patient's care. Please feel free to contact me with any questions or concerns. DISCHARGE DESTINATION: Home. TIME SPENT: Total amount of time spent coordinating this discharge: 32 minutes. Job ID: [id number]
== END 2019-06-04 13:01 | disposition home or self-care (01) | DRG 389 ==
LOC: ERS 05:43 → T4-B 10:38
PROVIDERS: ADMIT Internal Medicine; ATTEND Internal Medicine
DX: K56.600 Partial intestinal obstruction, unspecified as to cause (principal); E87.1 Hypo-osmolality and hyponatremia; M10.9 Gout, unspecified; E66.9 Obesity, unspecified; E87.6 Hypokalemia; Z96.659 Presence of unspecified artificial knee joint; K21.9 Gastro-esophageal reflux disease without esophagitis; Z96.652 Presence of left artificial knee joint; E78.5 Hyperlipidemia, unspecified; N18.3 Chronic kidney disease, stage 3 (moderate); I12.9 Hypertensive chronic kidney disease with stage 1 through stage 4 chronic kidney disease, or unspecified chronic kidney disease; M19.90 Unspecified osteoarthritis, unspecified site; Z68.38 Body mass index [BMI] 38.0-38.9, adult; Z79.899 Other long term (current) drug therapy; Z90.79 Acquired absence of other genital organ(s); Z85.46 Personal history of malignant neoplasm of prostate; Z23 Encounter for immunization
CPT/HCPCS: 36415; 71045; 74018; 74177; 74250; 80048; 80053; 82550; 83605; 83690; 83880; 84484; 85025; 90471; 90662; 93005; 96360; G0008; J2060; J2405; Q0162

== ENCOUNTER 2021-07-14 12:36 | Outpatient (CLI) | payer BC, MEDICARE ==
[2021-07-14 14:09] LABS: Anion Gap 14 mmol/L (10-20); BUN (Urea Nitrogen) 23 mg/dL (8.4-25.7); Calc. Creatinine Clearance 0 mL/min (70-130); Calcium 9.2 mg/dL (7.8-10.44); Carbon Dioxide 23 mmol/L (23-31); Chloride 101 mmol/L (98-107); Glucose 102 mg/dL (83-110); Sodium 134 mmol/L (136-145)
[2021-07-14 14:17] LABS: INR-International Normal Ratio 1.1; PTT 32.2 sec (22.0-33.0); Prothrombin Time 12.4 sec (9.5-12.1)
[2021-07-15 00:39] LABS: SARS-CoV-2 PCR by NAA Not Detected (NotDetected)
== END 2021-07-14 12:37 | disposition home or self-care (01) ==
LOC: LABBT 12:36
PROVIDERS: ATTEND Internal Medicine Cardiovascular Disease
DX: Z01.812 Encounter for preprocedural laboratory examination (principal); Z20.822 Contact with and (suspected) exposure to COVID-19
CPT/HCPCS: 80048; 85610; 85730; U0003; U0005

== ENCOUNTER 2021-07-19 09:28 | Day surgery (SDC) | payer BC, MEDICARE ==
[2021-07-15 11:48] VITALS: BMI 38.0
== END 2021-07-19 10:40 | disposition home or self-care (01) ==
LOC: SDC 09:28
PROVIDERS: ATTEND Internal Medicine Cardiovascular Disease
DX: I48.0 Paroxysmal atrial fibrillation (principal); I10 Essential (primary) hypertension; E78.5 Hyperlipidemia, unspecified; M10.9 Gout, unspecified; G47.30 Sleep apnea, unspecified; Z85.46 Personal history of malignant neoplasm of prostate; Z53.8 Procedure and treatment not carried out for other reasons; Z79.01 Long term (current) use of anticoagulants; Z79.899 Other long term (current) drug therapy
CPT/HCPCS: 93005; 93010

== ENCOUNTER 2022-08-05 16:39 | Emergency (ER) | payer BC, MEDICARE ==
[2022-08-05 17:20] LABS: #Eosinphils 0.2 thou/uL (0.0-0.7); #Lymphocytes 2.4 thou/uL (1.20-3.40); #Monocytes 0.5 thou/uL (0.11-0.59); #Neutrophils 4.3 thou/uL (1.40-6.50); %Basophils 0.1 % (0.0-1.0); %Eosinophils 2.3 % (0.0-10.0); %Lymphocytes 32.8 % (21.0-51.0); %Monocytes 7.1 % (0.0-10.0); %Neutrophils 57.6 % (42.0-75.0); Hemoglobin 15.2 g/dL (14.0-18.0); Mean Corpuscular HGB CONC 35.4 g/dL (32.0-36.0); Mean Corpuscular Hemoglobin 32.2 pg (27.0-31.0); Mean Corpuscular Volume 90.9 fl (78.0-98.0); Mean Platelet Volume 7.8 fL (7.4-10.4); Platelet Count 185 10x3/uL (130-400); RBC Distribution Width 12.9 % (11.5-14.5); Red Blood Cell (RBC) Count 4.72 mill/uL (4.70-6.10); White Blood Cell (WBC) Count 7.4 10x3/uL (4.8-10.8)
[2022-08-05 17:44] LABS: ALT (SGPT) 26 U/L (8-55); AST (SGOT) 21 U/L (5-34); Albumin 4.3 g/dL (3.4-4.8); Alkaline Phosphatase 73 U/L (40-110); Anion Gap 13 mmol/L (10-20); BUN (Urea Nitrogen) 14 mg/dL (8.4-25.7); Calc. Creatinine Clearance 0 mL/min (70-130); Calcium 9.5 mg/dL (7.8-10.44); Carbon Dioxide 24 mmol/L (23-31); Chloride 98 mmol/L (98-107); Estimated GFR 66; Globulin 3.1 g/dL (2.4-3.5); Glucose 88 mg/dL (83-110); Lipase 41 U/L (8-78); Potassium 3.8 mmol/L (3.5-5.1); Protein, Total 7.4 g/dL (5.8-8.1); Sodium 131 mmol/L (136-145)
[2022-08-05] MEDS ORDERED: Morphine 4 MG/ML VIAL ONE (18:10)
[2022-08-05] MEDS ORDERED: Ondansetron PF 4 MG/2 ML Vial ONE (18:10)
[2022-08-05 18:27] LABS: Bilirubin Negative (Negative); Blood, Urine Negative (Negative); Clarity Clear (Clear); Glucose, Urine (Dipstick) Normal (Negative); Ketone, Urine Negative (Negative); Leukocyte Negative Leu/uL (Negative); Nitrite Negative (Negative); Protein, Urine (Dipstick) Negative (Neg-Trace); Specific Gravity, Urine 1.014 (1.002-1.036); pH, Urine 7.5 (5.0-9.0)
== END 2022-08-05 19:12 | disposition home or self-care (01) ==
LOC: ERS 16:39
DX: K59.00 Constipation, unspecified (principal); E11.9 Type 2 diabetes mellitus without complications; I10 Essential (primary) hypertension; Z79.01 Long term (current) use of anticoagulants; Z79.899 Other long term (current) drug therapy
CPT/HCPCS: 36415; 74177; 80053; 81003; 83690; 85025; 96374; 96375; J2270; J2405

== ENCOUNTER 2023-01-28 05:21 | Emergency (ER) | payer BC, MEDICARE | END 2023-01-28 06:51 | disposition home or self-care (01) | LOC: ERS 05:21 | DX: K59.00 Constipation, unspecified (principal); I10 Essential (primary) hypertension; Z79.01 Long term (current) use of anticoagulants; Z79.899 Other long term (current) drug therapy | CPT/HCPCS: 99283 ==

== ENCOUNTER 2023-02-02 03:58 | Emergency (ER) | payer BC, MEDICARE ==
[2023-02-02 07:10] LABS: #Eosinphils 0.1 thou/uL (0.0-0.7); #Monocytes 0.4 thou/uL (0.11-0.59); #Neutrophils 3.1 thou/uL (1.40-6.50); %Basophils 0.6 % (0.0-1.0); %Eosinophils 2.2 % (0.0-10.0); %Monocytes 8.5 % (0.0-10.0); %Neutrophils 62.7 % (42.0-75.0); Hemoglobin 14.2 g/dL (14.0-18.0); Mean Corpuscular HGB CONC 35.5 g/dL (32.0-36.0); Mean Corpuscular Hemoglobin 30.3 pg (27.0-31.0); Mean Corpuscular Volume 85.3 fl (78.0-98.0); Mean Platelet Volume 9.6 fL (7.4-10.4); Platelet Count 192 10x3/uL (130-400); RBC Distribution Width 13.1 % (11.5-14.5); Red Blood Cell (RBC) Count 4.69 mill/uL (4.70-6.10); White Blood Cell (WBC) Count 4.9 10x3/uL (4.8-10.8)
[2023-02-02 07:36] LABS: ALT (SGPT) 23 U/L (8-55); AST (SGOT) 26 U/L (5-34); Albumin 4.3 g/dL (3.4-4.8); Alkaline Phosphatase 73 U/L (40-110); Anion Gap 14 mmol/L (10-20); BUN (Urea Nitrogen) 11 mg/dL (8.4-25.7); Bilirubin, Total 1.2 mg/dL (0.2-1.2); Calc. Creatinine Clearance 0 mL/min (70-130); Calcium 9.6 mg/dL (7.8-10.44); Carbon Dioxide 24 mmol/L (23-31); Chloride 98 mmol/L (98-107); Estimated GFR 74; Globulin 3.2 g/dL (2.4-3.5); Glucose 109 mg/dL (83-110); Lipase 43 U/L (8-78); Potassium 3.4 mmol/L (3.5-5.1); Protein, Total 7.5 g/dL (5.8-8.1); Sodium 133 mmol/L (136-145)
[2023-02-02 07:56] LABS: Bacteria/HPF None Seen HPF (None Seen); Bilirubin Negative (Negative); Blood, Urine Negative (Negative); CAUTI Indications for Culture Pelvic or flank pain; Clarity Clear (Clear); Glucose, Urine (Dipstick) Normal (Negative); Ketone, Urine Negative (Negative); Leukocyte Negative Leu/uL (Negative); Nitrite Negative (Negative); Protein, Urine (Dipstick) Negative (Neg-Trace); RBC/HPF None Seen HPF (0-3); Specific Gravity, Urine 1.012 (1.002-1.036); Squamous Epithelial None Seen HPF (0-3); Urobilinogen 3 mg/dL (Less than 2); WBC/HPF 0-3 HPF (0-3)
[2023-02-02 07:57] LABS: Urine Culture Reflex No No
[2023-02-02] MEDS ORDERED: Fleet Saline Enema 133 ML BOT PR SCH (08:00)
[2023-02-02] MEDS ORDERED: Potassium Chloride 20 MEQ TAB ONE (08:59)
== END 2023-02-02 10:04 | disposition home or self-care (01) ==
LOC: ERS 03:58
DX: K59.00 Constipation, unspecified (principal); I10 Essential (primary) hypertension; Z79.01 Long term (current) use of anticoagulants; Z79.899 Other long term (current) drug therapy
CPT/HCPCS: 74177; 80053; 81001; 83690; 85025

== ENCOUNTER 2024-08-03 08:52 | Emergency (ER) | payer MEDICARE | END 2024-08-03 10:20 | disposition home or self-care (01) | LOC: ERS 08:52 | DX: R09.81 Nasal congestion (principal); R05.9 Cough, unspecified; I10 Essential (primary) hypertension; I48.91 Unspecified atrial fibrillation; Z79.01 Long term (current) use of anticoagulants; Z79.899 Other long term (current) drug therapy | CPT/HCPCS: 71046; 87428 ==

== ENCOUNTER 2025-05-08 00:13 | Emergency (ER) | payer MEDICARE ==
[2025-05-08] MEDS ORDERED: Lidocaine 1% w/Epinephrine 1:100K 20 ML VIAL ONE (02:53)
== END 2025-05-08 04:15 | disposition home or self-care (01) ==
LOC: ERS 00:13
DX: K91.840 Postprocedural hemorrhage of a digestive system organ or structure following a digestive system procedure (principal); I10 Essential (primary) hypertension; Z79.01 Long term (current) use of anticoagulants; Z79.899 Other long term (current) drug therapy
CPT/HCPCS: 99283